=== PATIENT | male | born 1970 | race Caucasian/White ===

== ENCOUNTER 2020-03-22 06:45 | Emergency (ER) | payer OTHER ==
[2020-03-22] MEDS ORDERED: ACETAMINOPHEN 1000 MG/100 ML VIAL (NON FORMULARY) IVPB ONE (06:46)
[2020-03-22] MEDS ORDERED: diazePAM CARPU-JECT 10 MG/2 ML DISP.SYRIN IVPUSH ONE ×2 (06:46→07:06)
[2020-03-22] MEDS ORDERED: KETOROLAC TROMETHAMINE 30 MG/1 ML VIAL IVPUSH ONE (06:46)
[2020-03-22] MEDS ORDERED: diazePAM 5 MG TABLET ONE ×2 (06:49→11:00)
[2020-03-22] MEDS ORDERED: KETOROLAC TROMETHAMINE 15 MG/ML VIAL ONE (06:49)
[2020-03-22] MEDS ORDERED: ACETAMINOPHEN INJECTION 100 ML IVPB ONE (06:49)
[2020-03-22 06:50] VITALS: TEMP 97.6; BMI 26.9
[2020-03-22] MEDS ORDERED: diazePAM 5 MG TABLET PO ONE ×2 (07:14→10:58)
[2020-03-22] MEDS ORDERED: diazePAM CARPU-JECT 10 MG/2 ML DISP.SYRIN ONE (07:30)
[2020-03-22] MEDS ORDERED: MAG HYDROX/AL HYDROX/SIMETH -MYLANTA- ORAL SUSPENSION PO ONE (07:31)
[2020-03-22] MEDS ORDERED: FAMOTIDINE 20 MG/50 ML IVPB 20 MG/50 ML MG IVPB ONE ×2 (07:31→07:51)
[2020-03-22] MEDS ORDERED: MAG HYDROX/AL HYDROX/SIMETH 30 ML UNIT-DOSE CUP ONE (07:51)
[2020-03-22] MEDS ORDERED: LIDOCAINE 5% TOPICAL PATCH TP ONE (09:39)
[2020-03-22] MEDS ORDERED: LIDOCAINE 5% TOPICAL PATCH ONE (09:48)
[2020-03-22] MEDS ORDERED: CYCLOBENZAPRINE HCL 10 MG TABLET (FP) ONE (11:00)
[2020-03-22] MEDS ORDERED: CYCLOBENZAPRINE HCL 5 MG TABLET PO SCH (11:11)
[2020-03-22 11:13] VITALS: BP 111/76; PULSE 58
[2020-03-22] MEDS ORDERED: LIDOCAINE PATCH REMOVAL MC SCH (22:00)
[2020-03-23] MEDS ORDERED: CYCLOBENZAPRINE HCL 5 MG TABLET PO ONE (11:00)
== END 2020-03-22 11:13 | disposition home or self-care (01) ==
LOC: JER 06:45
PROC: 3E033GC Introduction of Other Therapeutic Substance into Peripheral Vein, Percutaneous Approach (ICD-10-PCS; principal; 2020-03-22)
DX: M54.5 Low back pain (principal)
CPT/HCPCS: 99284-25; J0131

== ENCOUNTER 2023-09-23 13:04 | Day surgery (SDC) | payer OTHER ==
[2023-09-23 07:18] VITALS: BMI 28.3
[2023-09-23] MEDS ORDERED: DEXAMETHASONE SOD PHOSPHATE/PF 10 MG/ML SDV ONE (13:09)
[2023-09-23] MEDS ORDERED: MIDAZOLAM HCL 2 MG/2 ML SINGLE DOSE VIAL ONE (13:09)
[2023-09-23] MEDS ORDERED: BUPIVACAINE HCL/PF 0.5% (5MG/ML) 10 ML VIAL ONE (13:09)
[2023-09-23] MEDS ORDERED: ROPIVACAINE HCL 0.5% 30ML VIAL ONE (13:10)
[2023-09-23] MEDS ORDERED: BUPIVACAINE HCL/PF 2.5 MG/ML - 30 ML VIAL IJ ONE (13:18)
[2023-09-23] MEDS ORDERED: PROPOFOL 20 ML ONE (13:33)
[2023-09-23] MEDS ORDERED: oxyCODONE HCL 5 MG TABLET PO PRN ×2 (14:54)
[2023-09-23] MEDS ORDERED: ONDANSETRON 4 MG/2 ML VIAL IVPUSH PRN (14:54)
[2023-09-23] MEDS ORDERED: PROMETHAZINE HCL 25 MG/1 ML VIAL IVPB PRN (14:54)
[2023-09-23 15:37] VITALS: PULSE 72; RESP 16; TEMP 97.6
[2023-09-23 16:49] VITALS: BP 102/60
== END 2023-09-23 15:50 | disposition home or self-care (01) ==
LOC: FASU 13:04
PROVIDERS: ATTEND Orthopaedic Surgery
PROC: 0RBK4ZZ Excision of Left Shoulder Joint, Percutaneous Endoscopic Approach (ICD-10-PCS; principal; 2023-09-23 13:59)
DX: M75.82 Other shoulder lesions, left shoulder (principal); M75.102 Unspecified rotator cuff tear or rupture of left shoulder, not specified as traumatic; M19.012 Primary osteoarthritis, left shoulder; M65.812 Other synovitis and tenosynovitis, left shoulder
CPT/HCPCS: 94760